=== PATIENT | male | born 1995 | race Two or more races ===

== ENCOUNTER 2019-01-11 12:09 | Emergency (ER) | payer SELFPAY ==
--- NOTE | 2019-01-11 12:35 | ER Document Report ---
ED Medical Screen (RME) - General Chief Complaint: Testicular Pain Stated Complaint: GROIN PAIN Time Seen by Provider: 01/11/19 12:28 Notes: Patient says he is been having pain in his right testicle for the past 4 days. It comes and goes. Not constant. Does not recall any injury, although his work involves heavy lifting. He says that there is swelling on the right side of his testicle. No trouble urinating i.e no burning or stinging or passing blood in urine.. No vomiting. No fevers. Has never had this before. No significant past medical history TRAVEL OUTSIDE OF THE [place] IN LAST 30 DAYS: No - Related Data Allergies/Adverse Reactions: No Known Allergies Allergy (Unverified 01/11/19 12:11) Past Medical History - Social History Cigarette use (# per day): No Family history: Reviewed & Not Pertinent Renal/ Medical History: Denies: Hx Epididymitis, Hx Testicular Torsion Surgical Hx: Negative Past Surgical History: Reports: None Review of Systems - Review of Systems Notes: REVIEW OF SYSTEMS: CONSTITUTIONAL : Denies fever. EENT: Denies eye, ear, nose or mouth or throat pain or other symptoms. CARDIOVASCULAR: Denies chest pain. RESPIRATORY: Denies cough, chest congestion, or shortness of breath. GASTROINTESTINAL: Denies abdominal pain or nausea, vomiting, or diarrhea. GENITOURINARY: See HPI. Denies difficulty or painful urinating, urinary frequency, blood in urine. MUSCULOSKELETAL: Denies back or neck pain. Denies joint pain or swelling. SKIN: Denies rash or skin lesions. NEUROLOGICAL: Denies LOC or altered mental status. Denies headache. Denies sensory loss or motor deficits. ALL OTHER SYSTEMS REVIEWED AND NEGATIVE. Physical Exam - Vital signs Vitals: Temp Pulse Resp BP Pulse Ox 97.4 F 66 20 154/73 H 100 01/11/19 12:13 01/11/19 12:13 01/11/19 12:13 01/11/19 12:13 01/11/19 12:13 Interpretation: Normal Notes: PHYSICAL EXAMINATION: GENERAL: Well-appearing, in no acute distress. Ambulates and does not appear to be in pain to do so. HEAD: Atraumatic, normocephalic. EYES: Pupils equal round and reactive to light, extraocular movements intact. ENT: oropharynx clear without exudates. Moist mucous membranes. NECK: Normal range of motion, supple. LUNGS: Breath sounds clear and equal bilaterally. HEART: Regular rate and rhythm without murmurs. ABDOMEN: Soft, nontender. No guarding or rebound. No masses. Genitourinary: Patient's left testicle and the entire left scrotum is normal. Patient's right testicle is a little tender in the inferior aspect, where the tail of the epididymis is located. I do not notice any swelling of the testicle or of the adjacent scrotum or inner aspect of the right thigh. I also do not elicit any significant tenderness or pain to palpate in that area. The central portion of the testicle is soft and not tender to compress or touch. BACK: No tenderness throughout entire back. EXTREMITIES: Normal range of motion without pain. NEUROLOGICAL: Normal speech, normal gait. Normal sensory, motor, and reflex exams. Awake, alert, and oriented x3. Cranial nerves normal. PSYCH: Normal mood, normal affect. SKIN: Warm, dry, no rashes. Course - Re-evaluation Re-evalutation: 01/11/19 18:09 I do not know if the patient have a may a low-grade epididymis of the tail of the epididymis or whether he could have pulled or strained the adjacent muscles and cremasteric muscles. Basically, his exam is completely normal and his workup including a urinalysis and ultrasound are completely normal as well. I am prescribing rest for a couple of days with a note for work until Saturday. He is being advised to take a couple of [id number] Motrin or Advil 3 times a day for the next few days. Return if symptoms worsen. - Vital Signs Vital signs: Temp Pulse Resp BP Pulse Ox 98.0 F 51 L 16 124/76 100 01/11/19 15:12 01/11/19 15:12 01/11/19 15:12 01/11/19 15:12 01/11/19 15:12 - Laboratory Laboratory results interpreted by me: 01/11/19 12:37 Urine Urobilinogen 4.0 H Urinalysis was normal. - Diagnostic Test Radiology reviewed: Image reviewed, Reports reviewed - Ultrasound of the scrotum was completely normal. Doctor's Discharge - Discharge Clinical Impression: Pain in scrotum or testicle Condition: Stable Disposition: HOME, SELF-CARE Additional Instructions: Testicular Pain Sometimes we can't prove the exact cause of testicle pain. Pain in the testicle can be caused by many different problems, including viral infections of the testicle, urinary tract infection, kidney stones, inflammation of the epididymis (the sac behind the testicle), hernia, dilated veins in the scrotum, or subtle injury. The most serious causes of testicular pain are tumor or twisting of the testicle. An ultrasound exam often shows what's wrong. When the initial testing doesn't show a cause for the pain, we usually refer to a urologist. Rest. Gentle warmth may help with symptoms. It's usually helpful to wear underwear that gives good support to the testicles ("briefs" instead of "boxers"). Call the doctor or return if there is sudden worsening of pain, fever, vomiting, testicle swelling, or discoloration of the scrotum. NORMAL EXAM AND WORKUP: At this time, your examination and workup show no significant abnormality. No significant abnormal physical findings were noted. All laboratory, EKG, and imaging (x-ray, CT scans, ultrasound) studies that were ordered show no signifi cant abnormality. Although your examination and all studies that were ordered showed no significant abnormal finding, there are no examinations and no studies that are 100% accurate. There is always the possibility that some abnormality could exist and not be detected with physical examination or within the limits and capabilities of laboratory and other studies. You should return or follow up as you were instructed on your visit today for further evaluation if your symptoms do not resolve. Possible muscle Strain You have strained a muscle -- torn the fibers within the muscle. This often occurs with strenuous exertion, or during an injury that suddenly stretches the muscle. The seriousness of a strain varies. Some strains heal within days, others cause problems for months. X-rays cannot show a muscle strain. X-rays are taken only if symptoms suggest that a fracture could be present. The usual treatment of a muscle strain is rest and ice packs. Sometimes, a sling, splint, or crutches may be necessary to rest the muscle. The muscle can be used again once pain subsides. Severe strains require a special exercise and stretching program to prevent permanent stiffness and disability. Your doctor will advise you if this will be necessary. Call the doctor immediately if pain or swelling becomes severe, or if numbness or discoloration develop. Scrotal Injury?: You may have sustained an injury to the scrotum near your testicle. You could have pulled a muscle there from heavy lifting. However, the pain should decrease after a few hours. Expect complete recovery in a week to 10 days. You should call the doctor or return for re-examination if pain increases, if the scrotum becomes increasingly swollen or hard, or if you develop fever or difficulty with urination. Ibuprofen Ibuprofen is an excellent, safe drug for pain control. In addition, it has potent antiinflammatory effects which are beneficial, especially in the treatment of injuries, arthritis, or tendonitis. It's best to take ibuprofen with food. Persons with ulcer disease or allergy to aspirin should notify their physician of this before taking ibuprofen. Take the medication exactly as prescribed. Don't take additional doses unless instructed to do so by your doctor. If you develop wheezing, shortness of breath, hives, faintness, stomach pain, vomiting, or dark black stools, return for re-evaluation at once. I recommend you rest for the next couple of days and I will write you a work note until Saturday. FOLLOW-UP CARE: If you have been referred to a physician for follow-up care, call the physicians office for an appointment as you were instructed or within the next two days. If you experience worsening or a significant change in your symptoms, notify the physician immediately or return to the Emergency Department at any time for re-evaluation. Forms: Return to Work
[2019-01-11 13:29] LABS: APPEARANCE,URINE CLOUDY; BILIRUBIN,URINE NEGATIVE (NEGATIVE); COLOR,URINE AMBER; GLUCOSE, URINE NEGATIVE (NEGATIVE); KETONES,URINE NEGATIVE (NEGATIVE); LEUKOCYTE ESTERASE,URINE NEGATIVE (NEGATIVE); NITRITE,URINE NEGATIVE (NEGATIVE); PROTEIN,URINE NEGATIVE (NEGATIVE); URINE SPECIFIC GRAVITY 1.031
--- NOTE | 2019-01-11 14:33 | RADIOLOGY REPORT (SQ) ---
EXAM DESCRIPTION: U/S SCROTUM W/DOPPLER COMPLETED DATE/TIME: 01/11/2019 1:56 pm REASON FOR STUDY: Pain in right groin and right testicle, inferior COMPARISON: None. TECHNIQUE: Static and realtime millard scale imaging of the scrotum and testes. Selected color Doppler and spectral images recorded to document blood flow. LIMITATIONS: None. FINDINGS: RIGHT: TESTICLE: Normal size. Normal echotexture. Normal blood flow. No mass. EPIDIDYMIS: Normal. HYDROCELE OR VARICOCELE: No. HERNIA OR EXTRA-TESTICULAR MASS: No. OTHER: No other significant finding. LEFT: TESTICLE: Normal size. Normal echotexture. Normal blood flow. No mass. EPIDIDYMIS: Normal. HYDROCELE OR VARICOCELE: No. HERNIA OR EXTRA-TESTICULAR MASS: No. OTHER: No other significant finding. IMPRESSION: NORMAL SCROTAL ULTRASOUND. NO EVIDENCE OF TESTICULAR MASS OR TORSION. TECHNICAL DOCUMENTATION: JOB ID: [id number] [employer]- All Rights Reserved Reading location - IP/workstation name: [email or web address]
[2019-01-11 15:14] VITALS: BP 124/76
== END 2019-01-11 15:20 | disposition home or self-care (01) ==
LOC: ER 12:09
DX: N50.811 Right testicular pain (principal)
CPT/HCPCS: 76870; 81001; 93976; 99284